=== PATIENT | female | born 1980 | race Caucasian/White ===

== ENCOUNTER 2018-08-06 09:08 | Outpatient (CLI) | payer BC ==
--- NOTE | 2018-08-06 09:48 | RAD ---
RADIOGRAPH CHEST 2 VIEWS: HISTORY: 37-year-old female with acute bronchitis. FINDINGS: The lungs are clear. The cardiomediastinal silhouette and hilar shadows are normal. There is no ple ural effusion. The osseous structures appear normal. There is no pneumothorax. IMPRESSION: Normal. brittany POS: VIRGIL
== END 2018-08-06 09:09 | disposition home or self-care (01) ==
LOC: BICRAD 09:08
PROVIDERS: ATTEND Family Medicine
DX: J20.9 Acute bronchitis, unspecified (principal)
CPT/HCPCS: 71046

== ENCOUNTER 2021-09-30 13:05 | Outpatient (CLI) | payer BC | END 2021-09-30 13:06 | disposition home or self-care (01) | LOC: BICRAD 13:05 | PROVIDERS: ATTEND Family Medicine | DX: J20.9 Acute bronchitis, unspecified (principal) | CPT/HCPCS: 71046 ==

== ENCOUNTER 2023-07-14 12:36 | Outpatient (CLI) | payer BC | END 2023-07-14 12:37 | disposition home or self-care (01) | LOC: BICRAD 12:36 | PROVIDERS: ATTEND Family Medicine | DX: M19.90 Unspecified osteoarthritis, unspecified site (principal) ==